=== PATIENT | male | born 1975 | race Caucasian/White ===

== ENCOUNTER 2024-06-05 08:16 | Outpatient (CLI) | payer OTHER | END 2024-06-05 08:17 | disposition home or self-care (01) | LOC: NM 08:16 | PROVIDERS: ATTEND Internal Medicine Endocrinology, Diabetes & Metabolism | DX: E05.80 Other thyrotoxicosis without thyrotoxic crisis or storm (principal); R94.8 Abnormal results of function studies of other organs and systems | CPT/HCPCS: 78014; A9516 ==